=== PATIENT | female | born 1975 | race African-American/Black ===

== ENCOUNTER 2019-09-10 11:37 | Emergency (ER) | payer SELFPAY ==
[2019-09-10 13:16] LABS: ABS Monocytes 0.5 10^3/ul (0-0.8); ABS Neutrophils 4.6 10^3/ul (1.5-7.7); Eosinophil % 0.2 %; Hematocrit 36 % (35-47); Hemoglobin 12.1 g/dL (12.0-16.0); Lymphocyte % 16.1 %; Mean Corpuscular HGB Conc 33 g/dL (31-36); Mean Corpuscular Hemoglobin 34 pg (27-31); Mean Corpuscular Volume 103 fL (80-97); Mean Platelet Volume 7.6 fL (7.4-10.4); Platelet Count 263 10^3/uL (150-450); Red Blood Count 3.52 10^6 /uL (3.70-4.87); Red Cell Distribution Width 14 % (10-15); White Blood Count 6.2 10^3/uL (3.5-10.8)
--- NOTE | 2019-09-10 13:19 | ED ---
Complex/Multi-Sys Presentation - HPI Summary HPI Summary: Patient is a 44 y/o F w/ Hx of lupus who presents to [facility] with complaints of diffuse swelling, SOB, decreased urine production, back pain, fever, cough, N/V , and abdominal discomfort and bloating. Patient characterizes her presentation of Sx as similar to previous flare-ups of lupus, but this episode is more severe than previous ones. She states that she was evaluated at an urgent care on 08/25/19 for her edema. She was prescribed a prednisone taper but stopped taking this medication around one week ago. Patient reports that she was experiencing some N/V and abdominal discomfort with the prednisone and did not finish the prescription. She reports she was getting better while on the prrednisone but stopped after 1 day of the 10mg dose. Afterwards, she states that she began to put on more "water-weight", which she states is a typical occurrence after taking a course of prednisone. However, she states that she has had notable decreased urine production, back pain, and swelling of her hands , feet, and neck. SOB and difficulty standing secondary to back pain are noted as well. Patient reports feeling bloated with food consumption. Patient states that she is experiencing fatigue . Patient tried taking an OTC diuretic as this has helped in the pastbut did not experience relief in Sx. She notes that she had onset of a cold this past weekend. Fever of 100-101 F and cough productive of light green sputum reported. Some nausea is noted to still be present. Patient states that she barely urinated today. She denies dysuria. Patient notes that she has been taking ibuprofen and Tylenol for her Sx. . Patient states that she used to receive benlysta injections for her lupus. However, since moving from [place] to [place] in February 2019, she has not had a benlysta injection. Patient reports Hx of blood clot in her right arm while being treated for breast ca several years go. She states that she was placed on Coumadin, was swapped over to Lovanox. Patient states that she had no issues afterwards, she reports that she is not currently on anti-coagulation therapy. No Hx of PE noted. Patient had double mastectomy in 2008 for breast cancer. She states that she has been free of cancer since then. Patient received chemotherapy for her cancer before mastectomy was done. She is not on hormone therapy. Patient had tubal ligation last year. She denies change of . LNMP was July, patient notes that she experiences spotty periods. She states that she does not smoke cigarettes and does not vape. No alcohol consumption noted. Raghavendra, who is present in the room, states that he has had cold Sx. Home medications and allergies are reviewed. Pt has appt with new PCP in 1 week in [facility] - History Of Current Complaint Chief Complaint: EDUpperRespComplaint Time Seen by Provider: 09/10/19 12:34 Hx Obtained From: Patient, Family/Paper Products Printer Onset/Duration: Lasting Days Timing: Days Location: Pain At: - back pain, abdominal discomfort Associated Signs And Symptoms: Positive: SOB, Cough, Edema, Nausea, Vomiting, Abdominal Pain - discomfort, bloating, Back Pain, Other - positive - decreased urine production. Negative: Dysuria - Allergies/Home Medications Allergies/Adverse Reactions: Allergies Allergy/AdvReac Type Severity Reaction Status Date / Time No Known Allergies Allergy Verified 09/10/19 11:42 PMH/Surg Hx/FS Hx/Imm Hx Previously Healthy: No - lupus - no current hx no kidne involvment Endocrine/Hematology History: Reports: Hx Anticoagulant Therapy - not current Sensory History: Denies: Hx Legally Blind, Hx Deafness Opthamlomology History: Denies: Hx Legally Blind EENT History: Denies: Hx Deafness - Cancer History Cancer Type, Location and Year: breast cancer - Surgical History Surgery Procedure, Year, and Place: double mastectomy, tubal ligation Infectious Disease History: No Infectious Disease History: Denies: Traveled Outside the [place] in Last 30 Days - Family History Known Family History: Positive: Non-Contributory Negative: Blood Disorder - Social History Occupation: Employed Full-time Lives: With Family Alcohol Use: None Substance Use Type: Reports: None Smoking Status (MU): Never Smoked Tobacco Review of Systems Positive: Fever - reported , Fatigue Positive: Cough Positive: Nausea Genitourinary: Other - positive - decreased urine production Negative: dysuria Musculoskeletal: Other - positive - back pain Positive: Edema All Other Systems Reviewed And Are Negative: Yes Physical Exam - Summary Physical Exam Summary: Vital Signs Reviewed: Yes A+Ox3, no distress, speaking full easy sentences, mild congestion Eyes: Conjunctiva Clear, LAUREN. EOM intact and full ENT: Hearing grossly normal TM x 2 clear, turbinates inflammed and boggy, + PND , mmoist, uvula midline, no exudate, no erythema Neck: Positive: Supple Respiratory: Positive: No respiratory distress, No accessory muscle use + CTA throughout no w/r, mild intermittnet cough, speaking full easy sentences, no pitting edema et x4 Cardiovascular: RRR nl s1, s2 no m/r CBT <2 sec abd soft + BS nt/nd no guarding, no distension Musculoskeletal Exam: DANIELSON x 4 without difficulty Strength Intact, ROM Intact Neurological: Positive: Alert, + sensation throughout Psychological: Positive: Normal Response To micro paleontologist Skin: Positive: no rash, no ecchymosis Triage Information Reviewed: Yes Vital Signs On Initial Exam: Initial Vitals Temp Pulse Resp BP Pulse Ox 98.5 F 112 19 190/107 100 09/10/19 11:39 09/10/19 11:39 09/10/19 11:39 09/10/19 11:39 09/10/19 11:39 Procedures - Sedation Patient Received Moderate/Deep Sedation with Procedure: No Diagnostics - Vital Signs Vital Signs Temp Pulse Resp BP Pulse Ox 09/10/19 13:00 105 99 09/10/19 12:40 107 148/95 100 09/10/19 12:39 107 100 09/10/19 12:38 111 173/105 100 09/10/19 11:39 98.5 F 112 19 190/107 100 - Laboratory Lab Results: Lab Results 09/10/19 Range/Units 13:02 WBC 6.2 (3.5-10.8) 10^3/uL RBC 3.52 L (3.70-4.87) 10^6 /uL Hgb 12.1 (12.0-16.0) g/dL Hct 36 (35-47) % MCV 103 H (80-97) fL MCH 34 H (27-31) pg MCHC 33 (31-36) g/dL RDW 14 (10-15) % Plt Count 263 (150-450) 10^3/uL MPV 7.6 (7.4-10.4) fL Neut % (Auto) 75.3 % Lymph % (Auto) 16.1 % Dickinson % (Auto) 7.8 % Eos % (Auto) 0.2 % Baso % (Auto) 0.6 % Absolute Neuts (auto) 4.6 (1.5-7.7) 10^3/ul Absolute Lymphs (auto) 1.0 (1.0-4.8) 10^3/ul Absolute Monos (auto) 0.5 (0-0.8) 10^3/ul Absolute Eos (auto) 0.0 (0-0.6) 10^3/ul Absolute Basos (auto) 0.0 (0-0.2) 10^3/ul Absolute Nucleated RBC 0.0 10^3/ul Nucleated RBC % 0.0 Result Diagrams: 09/10/19 13:02 09/10/19 13:02 Lab Statement: Any lab studies that have been ordered have been reviewed, and results considered in the medical decision making process. - Radiology CXR Radiology Interpretation Completed By: Radiologist Summary of Radiographic Findings: IMPRESSION: No active cardiopulmonary disease is noted. THIS REPORT WAS REVIEWED BY ED PHYSICIAN. - CT CTA CHEST/THORAX CT Interpretation Completed By: Radiologist Summary of CT Findings: IMPRESSION: No pulmonary embolus is noted. No evidence of aortic dissection is noted. Interstitial edema likely representing vascular congestion is noted. Small lymph nodes in. the prevascular space. THIS REPORT WAS REVIEWED BY ED PHYSICIAN. - EKG 1340 Cardiac Rate: Tachycardia - rate of 108 BPM EKG Rhythm: Sinus Tachycardia Summary of EKG Findings: EKG showed sinus tachycardia with rate of 108 BPM, no acute ST-T wave changes. ED physician has reviewed and interpreted this EKG. Re-Evaluation - Re-Evaluation First Eval Re-Evaluation Time: 14:16 Comment: Patient states that she feels improvied - reviewed labs - will give kcl and mangesiu, slight increase in ddimer, will check cta. RN accesed [employer]. . Workup so far was discussed. Patient agreeable with magnesium and CTA. Second Eval Comment: reviewed CT with pt. no PE. will give low dose lasix with low potassium. pred taper - iv dose here. f/u with PCP 1 week. primary referral center for rheum assistance. strict return precautions. work note. pt comfortable and in agreement with plan Complex Multi-Symp Course/Dx Course Of Treatment: Pt presents to ED reporting fluid rention, cough, nausea, fatigue progressive since stopping pred taper 1 week ago. Pt denies fevers, chest pain. VS reviewed. pt with congestion and intermittent mild cough. Pt without pitting edema. 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 Will check labs, ekg, cxr, likely CTA and close reassess - Diagnoses Provider Diagnoses: Edema, Lupus Discharge ED - Sign-Out/Discharge Documenting (check all that apply): Patient Departure - Discharge Plan Condition: Stable Disposition: HOME Prescriptions: Furosemide TAB* [Lasix TAB*] 20 mg PO DAILY #10 tab Potassium Chlor TAB* [Potassium Chlor TAB 20 MEQ*] 20 meq PO DAILY #10 tab.er predniSONE 20 mg TAB [Deltasone 20 MG TAB*] 20 mg PO DAILY #20 tab Patient Education Materials: Lupus Erythematosus (DC), Edema (ED) Forms: *Work Release Referrals: [facility] [place] PHYSICIAN REFERRAL [Outside] No Primary Care Phys,NOPCP [Primary Care Provider] - Additional Instructions: Findings discussed with Liban's recommendations for follow-up: 1) take 10 mg of Lasix every day. It is important to also take potassium on the days that you take Lasix. You can also eat a banana. It's important to keep your magnesium and potassium levels normal 2) take prednisone as a taper exactly as prescribed. Start tomorrow. Your giving her first dose of steroid through your IV 3) it is strongly recommended to contact the physician referral center tomorrow for assistance in scheduling with a db2 systems programmer. Keep your primary care appointment as scheduled next Wednesday 4) if you have any concerns or changes to her symptom which include increasing shortness of breath, chest pain, lightheadedness, or any other concerns please go immediately to emergency department for further evaluation and treatment. It is okay to call 911 if her symptoms become suddenly worse. - Billing Disposition and Condition Condition: STABLE Disposition: Home - Attestation Statements Document Initiated by Baljit: Yes Documenting Scribe: RADHA PULIDO Provider For Whom Baljit is Documenting (Include Credential): TAMRA AGUILAR MD Scribe Attestation: RADHA Sharp, scribed for TAMRA AGUILAR MD on 09/11/19 at 1842. Scribe Documentation Reviewed: Yes Provider Attestation: The documentation as recorded by the RADHA lovelace accurately reflects the service I personally performed and the decisions made by me, TAMRA AGUILAR MD Status of Scribe Document: Viewed
[2019-09-10 13:35] LABS: Anion Gap 8 mmol/L (2-11); CO2 Carbon Dioxide 25 mmol/L (22-32); Chloride 104 mmol/L (101-111); Magnesium 1.4 mg/dL (1.9-2.7); Potassium 3.4 mmol/L (3.5-5.0); Sodium 137 mmol/L (135-145)
[2019-09-10 13:41] LABS: ALT 23 U/L (7-52); AST 26 U/L (13-39); Albumin/Globulin Ratio 1.2 (1-3); Alkaline Phosphatase 87 U/L (34-104); BUN/Creatinine Ratio 13.4 (8-20); Blood Urea Nitrogen 11 mg/dL (6-24); EGFR African American 92.1 (>60); EGFR Non-African American 76.1 (>60); Globulin 3.3 g/dL (2-4); Glucose 87 mg/dL (70-100); Total Protein 7.3 g/dL (6.4-8.9)
[2019-09-10 13:45] LABS: HCG Pregnancy < 0.60 mIU/mL
[2019-09-10 14:15] LABS: Influenza A Molecular Negative (Negative); Influenza B Molecular Negative (Negative)
[2019-09-10] MEDS ORDERED: NS 0.9% 1000 ML** 1,000 ML IV ONE (14:17)
[2019-09-10] MEDS ORDERED: Magnesium Sulfate 2 GM IV* 2 GM/50 ML BAG IVPB ONE (14:20)
[2019-09-10] MEDS ORDERED: Iohexol 350* (CONTRAST) 500 ML MDV IV ONE (14:31)
[2019-09-10] MEDS ORDERED: Furosemide TAB* 20 MG PO ONE (16:12)
[2019-09-10] MEDS ORDERED: Potassium Chlor TAB* 20 MEQ TAB.ER PO ONE (16:12)
[2019-09-10] MEDS ORDERED: methylPREDNISolone 125 MG* 2 ML VIAL IV ONE (16:13)
[2019-09-10 16:18] VITALS: BP 135/81
[2019-09-10 16:32] LABS: Urine Appearance Clear; Urine Bilirubin Negative (Negative); Urine Blood Negative (Negative); Urine Color Straw; Urine Glucose Negative (Negative); Urine Ketones Negative (Negative); Urine Nitrite Negative (Negative); Urine Protein Negative (Negative); Urine Urobilinogen Negative (Negative)
== END 2019-09-10 16:40 | disposition home or self-care (01) ==
LOC: ED 11:37
DX: R60.9 Edema, unspecified (principal); M32.9 Systemic lupus erythematosus, unspecified; R06.02 Shortness of breath; R11.2 Nausea with vomiting, unspecified; R00.0 Tachycardia, unspecified
CPT/HCPCS: 36415; 71046; 71275; 80053; 81003; 83735; 83880; 84484; 84702; 85025; 85379; 93005; 96365; 96366; 96375; 99283; A9270-GY; J1642; J2930; J3475; Q9967